=== PATIENT | male | born 1965 | race Caucasian/White ===

== ENCOUNTER 2017-05-25 19:26 | Emergency (ER) | payer OTHER ==
[~2017-05-25] VITALS: Ht 172.7 cm; Wt 92.9 kg
[2017-05-25 21:00] LABS: RAPID INFLUENZA A Negative (Negative); RAPID INFLUENZA B Negative (Negative)
[2017-05-25] MEDS ORDERED: ALBUTEROL SULFATE 2.5 MG/3 ML NPPB ONE (21:00)
[2017-05-25] MEDS ORDERED: ACETAMINOPHEN 325 MG TABLET PO ONE (21:00)
[2017-05-25] MEDS ORDERED: ACETAMINOPHEN 325 MG TABLET ONE (22:04)
[2017-05-25] MEDS ORDERED: ALBUTEROL SULFATE 2.5 MG/3 ML ONE (22:11)
[2017-05-25 23:09] VITALS: BP 128/76
== END 2017-05-25 23:12 | disposition home or self-care (01) ==
LOC: ED 23:02
DX: J20.8 Acute bronchitis due to other specified organisms (principal)
CPT/HCPCS: 71020; 87400; 94640; 99285; J7512; J7613

== ENCOUNTER 2017-07-14 20:32 | Emergency (ER) | payer SELFPAY ==
[~2017-07-14] VITALS: Ht 172.7 cm; Wt 92.4 kg
[2017-07-14] MEDS ORDERED: IBUP200C5 PO (21:50)
[2017-07-14 22:47] LABS: BASOPHILS # (AUTO) 0.03 x10^3/uL (0-0.1); BASOPHILS % (AUTO) 0 % (0-1); EOSINOPHILS # (AUTO) 0.09 x10^3/uL (0-0.4); EOSINOPHILS % (AUTO) 1 % (1-7); LYMPHOCYTES # (AUTO) 1.49 x10^3/uL (1-3.4); LYMPHOCYTES % (AUTO) 17 % (22-44); MD NO; MEAN CORPUSCULAR HEMOGLOBIN 30.3 pg (27.5-34.5); MEAN CORPUSCULAR HGB CONC 34.2 g/dL (33.2-36.2); MEAN CORPUSCULAR VOLUME 88.5 fL (81-97); MEAN PLATELET VOLUME 7.9 fL (7.4-10.4); MONOCYTES # (AUTO) 0.72 x10^3/uL (0.2-0.8); MONOCYTES % (AUTO) 8 % (2-9); NEUTROPHILS # (AUTO) 6.29 x10^3/uL (1.8-6.8); NEUTROPHILS % (AUTO) 73 % (42-75); PLATELET COUNT 259 x10^3/uL (130-400); RED BLOOD COUNT 4.88 x10^6/uL (4.38-5.82); RED CELL DISTRIBUTION WIDTH 13.2 % (9.4-14.8)
[2017-07-14 22:57] LABS: ALBUMIN 3.7 g/dL (3.4-5.0); ANION GAP 6 mmol/L (5-15); CALCIUM 8.8 mg/dL (8.5-10.1); CHLORIDE 107 mmol/L (98-107); CREATININE 1.18 mg/dL (0.7-1.3)
[2017-07-14 23:01] LABS: TROPONIN I < 0.015 ng/mL (0.000-0.045)
[2017-07-14] MEDS ORDERED: OMNIPAQUE 350 MG/ML, 100ML BOTTLE ONE (23:52)
[2017-07-15 00:01] VITALS: BP 128/80
== END 2017-07-15 00:41 | disposition home or self-care (01) ==
LOC: ED 07-15 00:40
DX: R07.89 Other chest pain (principal); R05 Cough; J06.9 Acute upper respiratory infection, unspecified; J40 Bronchitis, not specified as acute or chronic
CPT/HCPCS: 36415; 71046; 71275; 80048; 82040; 84484; 85025; 85379; 93005; 99285; J7512; Q9967